=== PATIENT | male | born 1980 | race Caucasian/White ===

== ENCOUNTER → 2024-03-17 | Outpatient (CLI) | payer MEDICAID, SELFPAY ==
--- NOTE | 2024-03-17 15:00 | XR_ITS ---
Examination: Ultrasound soft tissue left clavicle chest wall TECHNIQUE: Multiple high-resolution grayscale sonographic images soft tissue left clavicle and chest wall Exam date and time: March 17, 2024 1507 hours INDICATIONS: Palpable lump upper left chest near the clavicle beginning one year ago FINDINGS: No cystic or solid mass noted IMPRESSION: No cystic or solid mass noted Consider CT scan chest post intravenous contrast follow-up as clinically warranted
== END | disposition home or self-care (01) ==
PROVIDERS: PCP Registered Nurse Community Health; Referring Provider Registered Nurse Community Health; Visit Provider Registered Nurse Community Health
DX: R07.89 Other chest pain (principal)
CPT/HCPCS: 76604

== ENCOUNTER → 2024-05-13 | Outpatient (CLI) | payer MEDICAID, SELFPAY ==
--- NOTE | 2024-05-13 09:00 | XR_ITS ---
Examination: Upper GI series with KUB Esophagram standard Fluoroscopy 20 spot fluoroscopic films esophagus and stomach Exam date and time: May 13, 2024 0919 hours INDICATIONS: Left-sided chest pain epigastric pain several years worse after eating TECHNIQUE AND FINDINGS: [employer] AP supine abdomen mild stool throughout the colon Patient swallowed thin barium with 20 spot films obtained of the esophagus stomach duodenal bulb and duodenal sweep Fluoroscopy 0.26 minutes Primary peristaltic esophageal waves noted Minimal gastroesophageal reflux No esophageal lesion No gastric mass deformity or ulceration Duodenal bulb expands symmetrically Duodenal sweep and small bowel loops are not dilated IMPRESSION: Minimal gastroesophageal reflux No gastric mass deformity or ulceration Negative for duodenitis
== END | disposition home or self-care (01) ==
PROVIDERS: PCP Registered Nurse Community Health; Referring Provider Registered Nurse Community Health; Visit Provider Registered Nurse Community Health
DX: K21.9 Gastro-esophageal reflux disease without esophagitis (principal)
CPT/HCPCS: 74240

== ENCOUNTER → 2024-05-27 | Outpatient (CLI) | payer MEDICAID, SELFPAY ==
--- NOTE | 2024-05-27 10:00 | XR_ITS ---
Examination: CT chest with intravenous contrast 2-D sagittal and coronal reconstructions Exam date and time: May 27, 2024 1125 hours INDICATIONS: Left breast pain and swelling with palpable lump, shortness of breath 7 years CTDI:vol (mGy) 8.27 DLP: (mGycm) 361 Technique: Multiple axial sections of the thorax have been obtained. Sections have been obtained, 3 mm slice thickness. Mediastinal and lung density settings have been obtained. Intravenous contrast administered, 60 cc Isovue-370. 2-D sagittal, coronal images obtained. Low dose protocols were performed. One or more of the following dose reduction techniques were used; automated exposure control, adjustment of the mA and/or KV according to patient size, use of iterative reconstruction technique. Findings: No thoracic aortic aneurysm dilatation Pulmonary artery segments are not enlarged No paratracheal tracheobronchial or bronchopulmonary adenopathy No pneumonia or pulmonary edema or pleural disease No visualized liver or splenic lesion Adequate bone density IMPRESSION: No mediastinal lymphadenopathy No pneumonia, pulmonary edema, pleural disease or pulmonary nodules No chest wall lesion or axillary lymphadenopathy depicted
== END | disposition home or self-care (01) ==
PROVIDERS: PCP Registered Nurse Community Health; Referring Provider Registered Nurse Community Health; Visit Provider Registered Nurse Community Health
DX: R10.9 Unspecified abdominal pain (principal); M94.0 Chondrocostal junction syndrome [Tietze]; N63.20 Unspecified lump in the left breast, unspecified quadrant
CPT/HCPCS: 71260; A4649; Q9967

== ENCOUNTER → 2025-04-11 | Outpatient (CLI) | payer BC, SELFPAY ==
--- NOTE | 2025-04-11 09:54 | XR_ITS ---
Examination: Retroperitoneal ultrasound, complete Technique: Multiple high resolution grayscale images of the retroperitoneum obtained, including kidneys and bladder. Exam date and time: April 11, 2025, 1017 hours INDICATIONS: Pelvic pressure with urination beginning 2 months ago. FINDINGS: Right kidney 10.3 cm renal cortex 2.1 cm Left kidney 10.9 cm renal cortex 1.6 cm Moderate renal scar formation 5 mm lower pole left renal calculus No hydronephrosis No bladder mass or bladder calculi Bladder prevoid volume 102 cc Prostatomegaly volume 48.5 cc no prostate nodules IMPRESSION: Moderate renal scar formation 5 mm nonobstructing lower pole left renal calculus
== END | disposition home or self-care (01) ==
PROVIDERS: PCP Registered Nurse Community Health; Referring Provider Registered Nurse Community Health; Visit Provider Registered Nurse Community Health
DX: N28.89 Other specified disorders of kidney and ureter (principal); N20.0 Calculus of kidney
CPT/HCPCS: 76770